=== PATIENT | female | born 1970 | race Caucasian/White ===

== ENCOUNTER 2019-03-20 10:11 | Emergency (ER) | payer MEDICAID ==
[~2019-03-20] VITALS: Ht 167.6 cm; Wt 68.2 kg
[~2019-03-20 10:11] MED LIST: CLE150C PO; DOCU-20 PO; LORA1TAB PO; OXYB5TAB16 PO; PHEN100C12 PO; RANI150C4 PO; THI100T PO
[2019-03-20 11:10] LABS: BASOPHILS # (AUTO) 0.1 X10'3 (0-0.2); BASOPHILS % (AUTO) 0.6 % (0-1); EOSINOPHILS # (AUTO) 0.1 X10'3 (0-0.9); EOSINOPHILS % (AUTO) 0.7 % (0-6); HEMATOCRIT 41.4 % (35.0-45.0); HEMOGLOBIN 13.4 g/dl (12.0-16.0); LYMPHOCYTES # (AUTO) 2.9 X10'3 (1.1-4.8); LYMPHOCYTES % (AUTO) 31.2 % (21-51); MEAN CORPUSCULAR HEMOGLOBIN 29.6 PG (27.0-31.0); MEAN CORPUSCULAR HGB CONC 32.3 g/dL (33.0-36.5); MEAN CORPUSCULAR VOLUME 91.9 FL (78-98); MONOCYTES # (AUTO) 0.8 X10'3 (0-0.9); MONOCYTES % (AUTO) 8.3 % (2-12); NEUTROPHILS # (AUTO) 5.5 X10'3 (1.8-7.7); NEUTROPHILS % (AUTO) 59.2 % (42-75); PLATELET COUNT 259 X10'3 (140-440); RED BLOOD COUNT 4.51 X10'6 (4.20-5.60); RED CELL DISTRIBUTION WIDTH 16.4 % (11.5-14.5); WHITE BLOOD COUNT 9.3 X10'3 (4.5-11.0)
[2019-03-20 11:23] LABS: ALANINE AMINOTRANSFERASE 79 U/L (12-78); ALBUMIN 3.6 G/DL (3.4-5.0); ALBUMIN/GLOBULIN RATIO 0.8 (1.1-1.5); ALKALINE PHOSPHATASE 86 IU/L (46-116); ANION GAP 8 (8-16); ASPARTATE AMINO TRANSFERASE 84 U/L (10-37); BILIRUBIN,TOTAL 0.2 MG/DL (0.1-1.0); BLOOD UREA NITROGEN 10 MG/DL (7-18); BUN/CREATININE RATIO 12.2 (6.6-38.0); CALCIUM 9.3 MG/DL (8.5-10.1); CHLORIDE 107 MMOL/L (99-107); CREATININE 0.82 MG/DL (0.40-0.90); GLUCOSE 98 MG/DL (70-104); POTASSIUM 3.6 MMOL/L (3.5-5.1); SODIUM 144 MMOL/L (135-145); TOTAL CARBON DIOXIDE 28.6 MMOL/L (24-32); TOTAL PROTEIN 8.1 G/DL (6.4-8.2); eGFR 75 ML/MIN
[2019-03-20 11:25] LABS: LIPASE 325 U/L (73-393)
[2019-03-20 11:26] LABS: ETHANOL 0.381 GM/DL (0.0-0.010)
[2019-03-20] MEDS ORDERED: normal saline 1000ML IV soln IVB ONE ×2 (11:40→13:20)
[2019-03-20] MEDS ORDERED: thiamine 100mg tablet PO ONE (11:40)
[2019-03-20] MEDS ORDERED: chlordiazePOXIDE 25mg capsule PO ONE (14:00)
--- NOTE | 2019-03-20 14:10 | NUR ---
ASSISTING WITH PATIENT CARE, PRIMARY RN SYLVIA. PATIENT STATES THAT SHE HAS NOT BEEN DRINKING HEAVILY"IN THE LAST WEEK, JUST TO MAINTAIN" DESPITE A KASIA OVER 4 TIMES THE LEGAL LIMIT. PATIENT STATED THAT "THIS TIME IM DONE DRINKNG". PATIENT WAS OFFERED TO GO TO [facility] AND PATIENT STATED "IM NOT FUCKING GOING BACK THERE" PATIENT REFUSED OTHER OUTPATIENT ETOH TREATMENT. PATIENT CALLED FOR A RIDE.
[2019-03-20 14:27] VITALS: BP 134/91
== END 2019-03-20 14:30 | disposition home or self-care (01) ==
LOC: ER 10:12
DX: F10.129 Alcohol abuse with intoxication, unspecified (principal); R56.9 Unspecified convulsions; F15.90 Other stimulant use, unspecified, uncomplicated; Z98.890 Other specified postprocedural states; Z88.5 Allergy status to narcotic agent; Z88.8 Allergy status to other drugs, medicaments and biological substances; Z79.899 Other long term (current) drug therapy; Y90.0 Blood alcohol level of less than 20 mg/100 ml
CPT/HCPCS: 36415; 80053; 80320; 83690; 85025; 93005; 99284; J7030

== ENCOUNTER 2019-08-06 13:47 | Inpatient (IN) | payer MEDICAID ==
[~2019-08-06] VITALS: Ht 167.6 cm; Wt 63.6 kg
--- NOTE | 2019-08-06 15:30 | NUR ---
NOTIFIED BY PT DAUGHTER OF STATUS CHANGE. PER DAUGHTER PT HAS DECREASING LOC AND WAS SENT HER FOR LOW B/P. PTS VS RE CHEKED. BP 90/61 AND 82/56 HR 115. SEPSIS PROTOCOL ORDERED AND CN NOTIFIED.
[2019-08-06 16:02] LABS: BASOPHILS # (AUTO) 0.1 X10'3 (0-0.2); MEAN PLATELET VOLUME 7.6 FL (7.4-10.4); NEUTROPHILS # (AUTO) 15.3 X10'3 (1.8-7.7); RED BLOOD COUNT 3.93 X10'6 (4.20-5.60)
[2019-08-06 16:04] LABS: BASOPHILS % (AUTO) 0.6 % (0-1); EOSINOPHILS % (AUTO) 0.1 % (0-6); HEMOGLOBIN 12.2 g/dl (12.0-16.0); LYMPHOCYTES # (AUTO) 1.4 X10'3 (1.1-4.8); MEAN CORPUSCULAR HGB CONC 33.9 g/dL (33.0-36.5); MEAN CORPUSCULAR VOLUME 91.6 FL (78-98); MONOCYTES % (AUTO) 5.4 % (2-12); NEUTROPHILS % (AUTO) 85.9 % (42-75); PLATELET COUNT 293 X10'3 (140-440); RED CELL DISTRIBUTION WIDTH 14.3 % (11.5-14.5); WHITE BLOOD COUNT 17.9 X10'3 (4.5-11.0)
[2019-08-06 16:13] LABS: ALANINE AMINOTRANSFERASE 29 U/L (12-78); ALBUMIN 3.1 G/DL (3.4-5.0); ALBUMIN/GLOBULIN RATIO 0.7 (1.1-1.5); ALKALINE PHOSPHATASE 91 IU/L (46-116); ANION GAP 12 (8-16); ASPARTATE AMINO TRANSFERASE 24 U/L (10-37); BILIRUBIN,TOTAL 0.3 MG/DL (0.1-1.0); BLOOD UREA NITROGEN 20 MG/DL (7-18); BUN/CREATININE RATIO 17.7 (6.6-38.0); CALCIUM 8.7 MG/DL (8.5-10.1); CHLORIDE 100 MMOL/L (99-107); CREATININE 1.13 MG/DL (0.40-0.90); GLUCOSE 104 MG/DL (70-104); POTASSIUM 3.6 MMOL/L (3.5-5.1); SODIUM 133 MMOL/L (135-145); TOTAL PROTEIN 7.4 G/DL (6.4-8.2); eGFR 52 ML/MIN
[2019-08-06] MEDS ORDERED: normal saline 1000ML IV soln IV ONE (16:15)
[2019-08-06] MEDS ORDERED: vancomycin/NS 1 GM ADD-VANTAGE 250 ML IV ONE (16:15)
[2019-08-06 16:40] LABS: PARTIAL THROMBOPLASTIN TIME 31 SECONDS (22-32)
[2019-08-06] MEDS ORDERED: piperacillin/tazo 3.375gm/50ml 50 ML IV ONE (16:40)
[2019-08-06 17:16] LABS: CLARITY,URINE SLIGHTLY CLOUDY (Clear); COLOR,URINE YELLOW (Yellow); GLUCOSE, URINE NEGATIVE (Neg); KETONES,URINE NEGATIVE (Neg); LEUKOCYTE ESTERASE ,URINE MODERATE (Neg); NITRITES, URINE NEGATIVE (Neg); OCCULT BLOOD,URINE NEGATIVE (Neg); PROTEIN,URINE NEGATIVE (Neg); UROBILINOGEN,URINE 0.2 E.U/dL (0.2-1.0)
[2019-08-06 17:17] LABS: UA COLLECTION TYPE CLN CATCH MIDSTREAM
[2019-08-06 17:22] LABS: MUCUS STRANDS FEW /LPF (Neg); SQUAMOUS EPITHELIAL CELL,UR MODERATE /LPF (FEW)
[2019-08-06 17:23] LABS: BACTERIA,URINE FEW /HPF (Neg); RBC,URINE 0-2 /HPF (0-2)
[2019-08-06 17:24] LABS: TRANSITIONAL EPI CELLS,URINE FEW /HPF; WBC,URINE 0-4 /HPF (0-4)
[2019-08-06] MEDS ORDERED: magnesium hydroxide 30ml (MOM) UD suspension PO PRN (17:30)
[2019-08-06] MEDS ORDERED: mag hydrox/Alum hydrox/simeth 30ml oral suspension PO PRN (17:30)
[2019-08-06] MEDS ORDERED: morphine 2 MG/ML inj. syringe IV PRN ×2 (17:30)
[2019-08-06] MEDS ORDERED: ondansetron/PF 4mg/2ml inj IV PRN (17:30)
[2019-08-06] MEDS ORDERED: RANI-388 PO (17:34)
[2019-08-06] MEDS ORDERED: LISI-600 PO (17:37)
[2019-08-06] MEDS ORDERED: PROM25TA14 PO (17:37)
[2019-08-06] MEDS ORDERED: IBUP-1986 PO (17:37)
[2019-08-06] MEDS ORDERED: LORA-268 PO (17:37)
[2019-08-06] MEDS ORDERED: ibuprofen tablet 400 MG TABLET PO PRN (18:10)
[2019-08-06] MEDS ORDERED: LORazepam 0.5 MG tablet PO PRN (18:10)
[2019-08-06] MEDS ORDERED: famotidine 20mg tablet PO SCH (18:20)
--- NOTE | 2019-08-06 18:45 | NUR ---
t with ipa 4014b. pt given jello and juice and dinner tray ordered. she reprots she is hungry and has only eaten cips today. pt is polite and cooperative and with stable vs. pain to foot is 5 out of 10 and hot, but reprots she is ok at the moment , no need for further pain meds. currently lying on the gurney on her back and watching no her phone.
[2019-08-06 18:47] LABS: PLATELET ESTIMATE NORMAL; TOTAL CELLS COUNTED 100; TOXIC VACUOLATION 1+
[2019-08-06] MEDS: ceFAZolin 1GM/D5W- ADD-VANTAGE 50 ML IV SCH (19:25)
[2019-08-06] MEDS: dextrose 5%-1/2 normal saline 1,000 ML IV SCH (19:27)
[2019-08-06 19:30] VITALS: BP 110/75
[2019-08-06] MEDS: oxybutynin 5mg tablet PO SCH (21:23)
[2019-08-06 22:00] VITALS: BP 98/65
[2019-08-06] MEDS ORDERED: docusate sod 250mg capsule PO SCH (22:00)
[2019-08-06] MEDS: docusate sod 250mg capsule PO SCH (22:40)
[2019-08-07] MEDS: ceFAZolin 1GM/D5W- ADD-VANTAGE 50 ML IV SCH ×4 (00:37→23:40)
--- NOTE | 2019-08-07 00:54 | NUR ---
noted pt has reddness up her right leg from ankle to behind right knee. solid at ankle, then blotchy up dawson and wraps around posterior knee. hot and painful. pt refused morphine "that gives me such a bad headache. just ibuprofen please"
[2019-08-07] MEDS: dextrose 5%-1/2 normal saline 1,000 ML IV SCH ×3 (03:29→23:39)
[2019-08-07 06:00] VITALS: BP 90/61
--- NOTE | 2019-08-07 06:13 | NUR ---
reported to days. noted pt resting w/o distress
[2019-08-07 06:20] LABS: BASOPHILS % (AUTO) 0.4 % (0-1); EOSINOPHILS # (AUTO) 0.1 X10'3 (0-0.9); EOSINOPHILS % (AUTO) 0.7 % (0-6); LYMPHOCYTES # (AUTO) 1.4 X10'3 (1.1-4.8); LYMPHOCYTES % (AUTO) 12.1 % (21-51); MEAN CORPUSCULAR HEMOGLOBIN 31.1 PG (27.0-31.0); MEAN CORPUSCULAR HGB CONC 33.2 g/dL (33.0-36.5); MEAN CORPUSCULAR VOLUME 93.6 FL (78-98); MEAN PLATELET VOLUME 7.8 FL (7.4-10.4); MONOCYTES # (AUTO) 1.3 X10'3 (0-0.9); MONOCYTES % (AUTO) 11.4 % (2-12); NEUTROPHILS # (AUTO) 8.8 X10'3 (1.8-7.7); NEUTROPHILS % (AUTO) 75.4 % (42-75); PLATELET COUNT 247 X10'3 (140-440); RED BLOOD COUNT 3.85 X10'6 (4.20-5.60); RED CELL DISTRIBUTION WIDTH 14.6 % (11.5-14.5); WHITE BLOOD COUNT 11.6 X10'3 (4.5-11.0)
--- NOTE | 2019-08-07 06:20 | NUR ---
Patient in room ORTHO 4014. I have received report from Dannie GOMEZ and had the opportunity to ask questions and assume patient care.
[2019-08-07 06:29] LABS: ALBUMIN 2.5 G/DL (3.4-5.0); ANION GAP 10 (8-16); BLOOD UREA NITROGEN 11 MG/DL (7-18); BUN/CREATININE RATIO 10.9 (6.6-38.0); CALCIUM 8.3 MG/DL (8.5-10.1); CHLORIDE 107 MMOL/L (99-107); CREATININE 1.01 MG/DL (0.40-0.90); GLUCOSE 125 MG/DL (70-104); POTASSIUM 3.8 MMOL/L (3.5-5.1); SODIUM 139 MMOL/L (135-145); TOTAL CARBON DIOXIDE 22.4 MMOL/L (24-32); eGFR 59 ML/MIN
[2019-08-07] MEDS: enoxaparin 40mg/0.4ml syringe SUBCUT SCH (07:37)
[2019-08-07] MEDS: famotidine 10mg tablet PO SCH (07:37)
[2019-08-07] MEDS: oxybutynin 5mg tablet PO SCH ×2 (07:38→19:47)
[2019-08-07] MEDS ORDERED: HYDROcodone/acetaminophen 5mg/325mg tablet PO PRN (09:05)
[2019-08-07 10:00] VITALS: BP 99/65
[2019-08-07] MEDS: HYDROcodone/acetaminophen 10/325mg tab PO PRN ×3 (10:12→23:39)
[2019-08-07] MEDS: docusate sod 250mg capsule PO SCH ×2 (10:12→19:47)
[2019-08-07 18:00] VITALS: BP 98/62
--- NOTE | 2019-08-07 18:23 | NUR ---
Problems reprioritized. Patient report given, questions answered & plan of care reviewed with Jie Short RN.
[2019-08-07] MEDS: lactobacillus rhamnosus 10,000 MMU CELLS/CAPSULE PO SCH (19:47)
--- NOTE | 2019-08-07 21:30 | NUR ---
Gave report to Diann, as she will be taking over care of patient.
[2019-08-07 22:00] VITALS: BP 109/72
--- NOTE | 2019-08-07 22:16 | NUR ---
Patient in room ORTHO 4014. I have received report from Jie GOMEZ and had the opportunity to ask questions and assume patient care.
--- NOTE | 2019-08-08 01:30 | NUR ---
I have reviewed and agree with all interventions, assessments performed and documented by Jie GOMEZ .
[2019-08-08] MEDS: HYDROcodone/acetaminophen 10/325mg tab PO PRN ×2 (05:08→09:47)
[2019-08-08 06:00] VITALS: BP 112/77
--- NOTE | 2019-08-08 06:35 | NUR ---
Problems reprioritized. Patient report given, questions answered & plan of care reviewed with Mehreen GOMEZ.
[2019-08-08 07:04] LABS: BASOPHILS # (AUTO) 0.1 X10'3 (0-0.2); EOSINOPHILS # (AUTO) 0.4 X10'3 (0-0.9); HEMOGLOBIN 12.2 g/dl (12.0-16.0); LYMPHOCYTES # (AUTO) 2.1 X10'3 (1.1-4.8); MEAN CORPUSCULAR HGB CONC 34.1 g/dL (33.0-36.5); RED BLOOD COUNT 3.91 X10'6 (4.20-5.60)
[2019-08-08 07:07] LABS: BASOPHILS % (AUTO) 0.9 % (0-1); EOSINOPHILS % (AUTO) 3.9 % (0-6); HEMATOCRIT 35.8 % (35.0-45.0); LYMPHOCYTES % (AUTO) 21.1 % (21-51); MEAN CORPUSCULAR HEMOGLOBIN 31.2 PG (27.0-31.0); MEAN CORPUSCULAR VOLUME 91.5 FL (78-98); MEAN PLATELET VOLUME 8.1 FL (7.4-10.4); MONOCYTES # (AUTO) 1.2 X10'3 (0-0.9); MONOCYTES % (AUTO) 12.5 % (2-12); NEUTROPHILS # (AUTO) 6.1 X10'3 (1.8-7.7); NEUTROPHILS % (AUTO) 61.6 % (42-75); PLATELET COUNT 232 X10'3 (140-440); RED CELL DISTRIBUTION WIDTH 14.5 % (11.5-14.5); WHITE BLOOD COUNT 9.9 X10'3 (4.5-11.0)
[2019-08-08 07:17] LABS: ALBUMIN 2.5 G/DL (3.4-5.0); ANION GAP 5 (8-16); BLOOD UREA NITROGEN 8 MG/DL (7-18); BUN/CREATININE RATIO 9.3 (6.6-38.0); CALCIUM 8.7 MG/DL (8.5-10.1); CHLORIDE 104 MMOL/L (99-107); CREATININE 0.86 MG/DL (0.40-0.90); GLUCOSE 110 MG/DL (70-104); POTASSIUM 3.8 MMOL/L (3.5-5.1); SODIUM 137 MMOL/L (135-145); TOTAL CARBON DIOXIDE 27.8 MMOL/L (24-32); eGFR 71 ML/MIN
[2019-08-08 07:28] LABS: PLATELET ESTIMATE NORMAL; TOTAL CELLS COUNTED 100
[2019-08-08] MEDS: famotidine 10mg tablet PO SCH (08:00)
[2019-08-08] MEDS ORDERED: diphenhydrAMINE 50 mg/ml inj IV PRN (09:00)
[2019-08-08] MEDS ORDERED: clindamycin 150mg capsule PO ONE (09:00)
[2019-08-08] MEDS ORDERED: CLIN-5 PO (09:15)
[2019-08-08] MEDS ORDERED: HYDR-4383 PO (09:15)
[2019-08-08] MEDS: lactobacillus rhamnosus 10,000 MMU CELLS/CAPSULE PO SCH (09:47)
[2019-08-08] MEDS: docusate sod 250mg capsule PO SCH (09:47)
[2019-08-08] MEDS: oxybutynin 5mg tablet PO SCH (09:47)
[2019-08-08] MEDS: enoxaparin 40mg/0.4ml syringe SUBCUT SCH (09:48)
[2019-08-08 10:31] VITALS: BP 92/56
== END 2019-08-08 12:15 | disposition home or self-care (01) | DRG 720 ==
LOC: ER 13:48 → ED HOLD 17:32 → ORTHO 4S 19:06
PROVIDERS: ADMIT Internal Medicine; ATTEND Internal Medicine
DX: A41.9 Sepsis, unspecified organism (principal); E87.2 Acidosis; N17.9 Acute kidney failure, unspecified; F17.210 Nicotine dependence, cigarettes, uncomplicated; F41.9 Anxiety disorder, unspecified; L03.115 Cellulitis of right lower limb; K21.9 Gastro-esophageal reflux disease without esophagitis; I10 Essential (primary) hypertension; Z88.5 Allergy status to narcotic agent; Z88.8 Allergy status to other drugs, medicaments and biological substances; Z79.899 Other long term (current) drug therapy; Z83.3 Family history of diabetes mellitus; Z90.81 Acquired absence of spleen; Z82.49 Family history of ischemic heart disease and other diseases of the circulatory system
CPT/HCPCS: 36415; 71045; 80048; 80053; 81001; 83605; 84145; 85025; 85610; 85730; 87040; 87081; 87088; 93005; 93971; 96365; 99285; G0378; J0690; J1200; J1650; J2270; J2405; J2543; J3370

== ENCOUNTER 2019-09-11 16:39 | Emergency (ER) | payer MEDICAID ==
[~2019-09-11] VITALS: Ht 167.6 cm; Wt 65.2 kg
[~2019-09-11 16:39] MED LIST changes: -CLE150C PO; +CLIN-5 PO; -DOCU-20 PO; +HYDR-4383 PO; +IBUP-1986 PO; +LISI-600 PO; +LORA-268 PO; -LORA1TAB PO; -PHEN100C12 PO; +PROM25TA14 PO; +RANI-388 PO; -RANI150C4 PO; -THI100T PO
[2019-09-11 16:45] VITALS: BP 143/94
[2019-09-11] MEDS ORDERED: SULF1TAB49 PO (17:19)
== END 2019-09-11 17:37 | disposition home or self-care (01) ==
LOC: ER 16:41
DX: L02.818 Cutaneous abscess of other sites (principal); L08.9 Local infection of the skin and subcutaneous tissue, unspecified; I10 Essential (primary) hypertension; F10.10 Alcohol abuse, uncomplicated; F12.90 Cannabis use, unspecified, uncomplicated; F15.90 Other stimulant use, unspecified, uncomplicated; Z86.14 Personal history of Methicillin resistant Staphylococcus aureus infection; Z98.890 Other specified postprocedural states; Z88.5 Allergy status to narcotic agent; Z79.899 Other long term (current) drug therapy; Y90.9 Presence of alcohol in blood, level not specified
CPT/HCPCS: 99283

== ENCOUNTER 2020-02-09 14:26 | Emergency (ER) | payer MEDICAID ==
[~2020-02-09] VITALS: Ht 167.6 cm; Wt 70.0 kg
[2020-02-09] MEDS ORDERED: LIDOcaine 5% patch TP ONE (16:35)
[2020-02-09] MEDS ORDERED: cyclobenzaprine 10mg tablet PO ONE (16:35)
[2020-02-09] MEDS ORDERED: HYDROcodone/acetaminophen 5mg/325mg tablet PO ONE (16:35)
[2020-02-09] MEDS ORDERED: ketorolac trometh. 30mg/ml inj. IM ONE (16:35)
[2020-02-09 17:49] VITALS: BP 152/104
== END 2020-02-09 17:56 | disposition home or self-care (01) ==
LOC: ER 14:26
DX: M54.16 Radiculopathy, lumbar region (principal); M54.2 Cervicalgia; I10 Essential (primary) hypertension; F12.90 Cannabis use, unspecified, uncomplicated; F15.90 Other stimulant use, unspecified, uncomplicated; Z86.14 Personal history of Methicillin resistant Staphylococcus aureus infection; Z98.890 Other specified postprocedural states; Z88.5 Allergy status to narcotic agent; Z79.2 Long term (current) use of antibiotics; Z79.899 Other long term (current) drug therapy
CPT/HCPCS: 96372; 99284; J1885

== ENCOUNTER 2021-01-22 14:56 | Emergency (ER) | payer MEDICAID ==
[~2021-01-22] VITALS: Ht 167.6 cm; Wt 62.9 kg
[~2021-01-22 14:56] MED LIST changes: -CLIN-5 PO; +CLIN-91 PO; -LISI-600 PO; +LISI20TA28 PO
[2021-01-22] MEDS ORDERED: ketorolac tromethamine 15mg/ml inj. IM ONE (16:30)
[2021-01-22 17:21] LABS: BASOPHILS % (AUTO) 0.3 % (0-1); EOSINOPHILS # (AUTO) 0.1 X10'3 (0-0.9); EOSINOPHILS % (AUTO) 0.8 % (0-6); HEMATOCRIT 36.6 % (35.0-45.0); LYMPHOCYTES # (AUTO) 1.2 X10'3 (1.1-4.8); LYMPHOCYTES % (AUTO) 9.5 % (21-51); MEAN CORPUSCULAR HEMOGLOBIN 28.3 PG (27.0-31.0); MEAN CORPUSCULAR HGB CONC 32.8 g/dL (33.0-36.5); MEAN CORPUSCULAR VOLUME 86.3 FL (78-98); MEAN PLATELET VOLUME 7.3 FL (7.4-10.4); MONOCYTES # (AUTO) 1.1 X10'3 (0-0.9); MONOCYTES % (AUTO) 9.5 % (2-12); NEUTROPHILS # (AUTO) 9.7 X10'3 (1.8-7.7); NEUTROPHILS % (AUTO) 79.9 % (42-75); PLATELET COUNT 352 X10'3 (140-440); RED BLOOD COUNT 4.25 X10'6 (4.20-5.60); RED CELL DISTRIBUTION WIDTH 16.2 % (11.5-14.5); WHITE BLOOD COUNT 12.1 X10'3 (4.5-11.0)
[2021-01-22 17:30] LABS: PARTIAL THROMBOPLASTIN TIME 24 SECONDS (22-32)
[2021-01-22 17:33] LABS: ALANINE AMINOTRANSFERASE 53 U/L (12-78); ALBUMIN 3.5 G/DL (3.4-5.0); ALBUMIN/GLOBULIN RATIO 0.9 (1.1-1.5); ALKALINE PHOSPHATASE 110 IU/L (46-116); ANION GAP 12 (8-16); ASPARTATE AMINO TRANSFERASE 45 U/L (10-37); BILIRUBIN,TOTAL 0.2 MG/DL (0.1-1.0); BLOOD UREA NITROGEN 20 MG/DL (7-18); BUN/CREATININE RATIO 18.2 (6.6-38.0); C-REACTIVE PROTEIN 0.64 MG/DL (0.0-0.5); CALCIUM 8.9 MG/DL (8.5-10.1); CHLORIDE 103 MMOL/L (99-107); GLUCOSE 99 MG/DL (70-104); SODIUM 138 MMOL/L (135-145); TOTAL CARBON DIOXIDE 22.7 MMOL/L (24-32); TOTAL PROTEIN 7.6 G/DL (6.4-8.2); eGFR 53 ML/MIN
[2021-01-22 17:35] LABS: POTASSIUM 2.7 MMOL/L (3.5-5.1)
[2021-01-22] MEDS ORDERED: potassium Cl 10 mEq/100mL bag IV ONE (17:50)
[2021-01-22] MEDS ORDERED: potassium Cl 10 mEq/100mL bag IV SCH (18:15)
--- NOTE | 2021-01-22 18:24 | NUR ---
pt placed on electronic device monitor. ecg completed by tech
[2021-01-22 20:06] VITALS: BP 121/71
[2021-01-22] MEDS ORDERED: BETA15CR4 TOP (20:09)
[2021-01-22] MEDS ORDERED: PRED20TA PO (20:09)
[2021-01-22] MEDS ORDERED: SULF1TAB45 PO (20:11)
== END 2021-01-22 20:17 | disposition home or self-care (01) ==
LOC: ER 14:56
DX: E87.6 Hypokalemia (principal); L53.9 Erythematous condition, unspecified; I10 Essential (primary) hypertension; F17.200 Nicotine dependence, unspecified, uncomplicated; F12.90 Cannabis use, unspecified, uncomplicated; F15.90 Other stimulant use, unspecified, uncomplicated; Z86.19 Personal history of other infectious and parasitic diseases; Z72.89 Other problems related to lifestyle; Z86.14 Personal history of Methicillin resistant Staphylococcus aureus infection; Z88.8 Allergy status to other drugs, medicaments and biological substances; Z79.2 Long term (current) use of antibiotics; Z79.899 Other long term (current) drug therapy
CPT/HCPCS: 36415; 80053; 83605; 85025; 85610; 85651; 85730; 86140; 87040; 96365; 96366; 96372; 99285; J1885; J3480

== ENCOUNTER 2022-05-26 08:07 | Emergency (ER) | payer MEDICAID ==
[~2022-05-26] VITALS: Ht 165.1 cm; Wt 61.1 kg
[~2022-05-26 08:07] MED LIST changes: +BETA15CR4 TOP
[2022-05-26 10:10] LABS: CLARITY,URINE CLOUDY (Clear); COLOR,URINE YELLOW (Yellow); GLUCOSE, URINE NEGATIVE (Neg); KETONES,URINE NEGATIVE (Neg); LEUKOCYTE ESTERASE ,URINE SMALL (Neg); NITRITES, URINE POSITIVE (Neg); OCCULT BLOOD,URINE NEGATIVE (Neg); PROTEIN,URINE TRACE mg/dl (Neg)
[2022-05-26 10:15] LABS: UA COLLECTION TYPE CLN CATCH MIDSTREAM
[2022-05-26 10:17] LABS: BACTERIA,URINE 3+ /HPF (Neg); HYALINE CASTS 0-3 /LPF (NEGATIVE); MUCUS STRANDS NONE SEEN /LPF (Neg); RBC,URINE 0-2 /HPF (0-2); SQUAMOUS EPITHELIAL CELL,UR MODERATE /LPF (FEW); WBC CLUMPS,URINE FEW /HPF (NEGATIVE)
[2022-05-26 10:47] VITALS: BP 143/106
[2022-05-26] MEDS ORDERED: CEPH250T PO (11:00)
== END 2022-05-26 11:17 | disposition home or self-care (01) ==
LOC: ER 08:08
DX: N39.0 Urinary tract infection, site not specified (principal); M54.50 Low back pain, unspecified; F19.10 Other psychoactive substance abuse, uncomplicated; I10 Essential (primary) hypertension; G89.29 Other chronic pain; F17.200 Nicotine dependence, unspecified, uncomplicated; F12.90 Cannabis use, unspecified, uncomplicated; F15.20 Other stimulant dependence, uncomplicated; Z88.5 Allergy status to narcotic agent; W19.XXXA Unspecified fall, initial encounter; Y93.89 Activity, other specified; Y92.89 Other specified places as the place of occurrence of the external cause; Y99.8 Other external cause status
CPT/HCPCS: 81001; 99284

== ENCOUNTER 2023-03-13 11:53 | Emergency (ER) | payer MEDICAID ==
[~2023-03-13] VITALS: Ht 167.6 cm; Wt 58.0 kg
[2023-03-13 12:16] VITALS: BP 124/69
--- NOTE | 2023-03-13 15:02 | NUR ---
CALLED PT'S NAME FROM THE LOBBY TO GET A SET OF VITALS AND THE PT WAS NOT IN LOBBY
== END 2023-03-13 15:56 | disposition left against medical advice (07) ==
LOC: ER 11:55
DX: H57.12 Ocular pain, left eye (principal); Z53.21 Procedure and treatment not carried out due to patient leaving prior to being seen by health care provider
CPT/HCPCS: 99281

== ENCOUNTER 2025-03-04 18:33 | Emergency (ER) | payer MEDICAID ==
[~2025-03-04] VITALS: Ht 167.6 cm; Wt 65.7 kg
[~2025-03-04 18:33] MED LIST changes: +CLIN-232 PO; -CLIN-91 PO; -OXYB5TAB16 PO; +OXYB5TAB21 PO
[2025-03-04 18:44] VITALS: BP 117/77; PULSE 77; RESP 16; O2SAT 99
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
[2025-03-04 19:58] LABS: URINE AMPHETAMINE SCREEN POSITIVE (Neg); URINE BARBITUATE SCREEN NEGATIVE (Neg); URINE BENZODIAZEPINES SCREEN NEGATIVE (Neg); URINE CANNABINOID SCREEN POSITIVE (Neg); URINE COCAINE SCREEN NEGATIVE (Neg); URINE METHADONE SCREEN NEGATIVE (Neg); URINE OPIATE SCREEN NEGATIVE (Neg); URINE PHENCYCLIDINE SCREEN NEGATIVE (Neg)
[2025-03-04 20:04] VITALS: TEMP 97.8
== END 2025-03-04 20:06 | disposition home or self-care (01) ==
LOC: ER 18:34
DX: R42 Dizziness and giddiness (principal); T43.625A Adverse effect of amphetamines, initial encounter; I10 Essential (primary) hypertension; Z88.5 Allergy status to narcotic agent; Z79.899 Other long term (current) drug therapy; Y92.89 Other specified places as the place of occurrence of the external cause
CPT/HCPCS: 80305; 99283

== ENCOUNTER 2025-05-25 09:39 | Inpatient (IN) | payer MEDICAID ==
[~2025-05-25] VITALS: Ht 167.6 cm; Wt 65.0 kg
--- NOTE | 2025-05-25 11:22 | Physician Documentation ---
History of Present Illness ~ Chief Complaint: Multiple Medical Complaints Stated Complaint: R LEG INFECTION Time Seen by MD: 10:47 Primary Medical Doctor: [facility] Patient is seen today with complaints of swelling of her right lower extremity that started a couple of days ago. Patient states she has had infection in the right lower extremity that healed up over a year ago. Patient denies any fevers or chills but states her right lower extremity is extremely painful and she is very concerned about it progressing to full-blown infection and sepsis like it did a few years ago in the same leg. Tetanus witin 5 years: Yes Medication Reconciliation Allergies: Coded Allergies: codeine (Verified Allergy, Unknown, 05/25/25) Scheduled Metoprolol Tartrate (Lopressor tablet), 1 TAB PO Q12H, (Reported) Scheduled PRN Ibuprofen (Ibuprofen), 1 TAB PO TID PRN for pain, (Reported) Discontinued Medications Betamethasone Dipropionate (Betamethasone Dipropionate), 1 APPLIC TOP Q12H Discontinued Reason: patient no longer taking Clindamycin HCl (Clindamycin HCl), 300 MG PO Q6H Discontinued Reason: patient no longer taking Hydrocodone/Acetaminophen ([place] 5-325 Tablet), 1 TAB PO Q6H PRN for moderate pain Discontinued Reason: patient no longer taking Lisinopril (Lisinopril), 1 TAB PO DAILY, (Reported) Discontinued Reason: patient no longer taking Lorazepam (Ativan), 1 TAB PO BID PRN for for anxiety/agitation, (Reported) Discontinued Reason: patient no longer taking Oxybutynin Chloride (Oxybutynin Chloride), 2 TABLET PO BID, (Reported) Discontinued Reason: patient no longer taking Promethazine HCl (Promethazine HCl), 1 TAB PO BID PRN for nausea/vomiting, (Reported) Discontinued Reason: patient no longer taking Ranitidine Hcl (Heartburn Relief 150), 150 MG PO DAILY, (Reported) Discontinued Reason: patient no longer taking Past Medical History Past Medical History: Hypertension, *GI/HEPATOBILIARY*, Hepatitis B, Hepatitis C, Chronic Pain, Extremity Fracture, Cellulitis, MRSA Abscess Past Surgical History: abdominal surgery, orthopedic surgeries Alcohol Use: Alcoholic Drug Use: marijuana, methamphetamine Lives In: Home Review of Systems Constitutional: Denies: chills, fever, weakness Eyes: Denies: pain, blurred vision ENT: Denies: ear pain, nose pain, throat pain, mouth pain Respiratory: Denies: cough, shortness of breath Cardiovascular: Denies: chest pain, palpitations Gastrointestinal: Denies: abdominal pain, nausea, vomiting Genitourinary: Denies: burning, dysuria Female Genitalia: Denies: vaginal discharge, pelvic pain Neurological: Denies: headache, dizziness Musculoskeletal: Denies: pain, swelling Integumentary: Denies: rash, lesions Allergic/Immunologic: Denies: hives, itching Hematologic/Lymphatic: Denies: no symptoms reported Psychiatric: Denies: depression, anxiety Physical Exam Vital Signs: Temperature: 97.8, Source: Oral, Heart Rate: 103, Respiratory Rate: 17, BP: 101/72, Pulse Oximetry: 98, Weight: 65.000 Physical Exam General: Awake and Alert, no acute distress. HEENT: Conjunctiva pink, Sclera clear, Mucus Membranes moist. Neck: Supple without masses and tenderness. Resp: Unlabored. Lungs clear to auscultation bilaterally. Heart: Regular Rate and rhythm, normal S1 and S2 without murmur, rub or gallop. Extremities: No cyanosis, patient does have significant edema of the right lower extremity only. Left lower extremity is completely unremarkable. Skin: Patient on exam has erythema and nonblanching erythematous rash of the right lower extremity. Progress Results/Orders Results/Orders Orders - AUNDREA SEGURA PAC Vl Venous (05/25/25 11:21) Urinalysis, Cult If Indicated (05/25/25 11:21) Chest,Two Views (05/25/25 11:21) Page Hospitalist (05/25/25 16:47) Fill Out Med Reconciliation (05/25/25 16:47) Saline Lock (05/25/25 ) Completed Orders - AUNDREA SEGURA PAC Vl Venous (05/25/25 11:21) Cbc/Diff (05/25/25 11:21) MG (05/25/25 11:21) D-Dimer (05/25/25 11:21) Chest,Two Views (05/25/25 11:21) C-Reactive Protein (05/25/25 11:21) ESR (05/25/25 11:21) Electrocardiogram (05/25/25 11:21) BMP (05/25/25 11:21) Hs Troponin I W Calculations (05/25/25 11:21) Hs Troponin I W Calculations (05/25/25 13:21) Ketorolac Trometh 15mg/Ml Vial (Toradol (05/25/25 16:47) Medications Received in ER Medications (Trade) Dose Ordered Sig/Tanner Route PRN Reason Start Time Stop Time Status Last Admin Dose Admin (Toradol injection) 15 mg ONCE STAT IV 05/25/25 16:47 05/25/25 16:49 DC 05/25/25 17:09 15 MG Vital Signs 05/25/25 05/25/25 05/25/25 05/25/25 09:41 14:34 15:41 17:09 Temp 97.8 Pulse 103 78 87 Resp 17 14 18 B/P (MAP) 101/72 121/80 (94) 115/80 (92) Pulse Ox 98 96 98 O2 Flow Rate 0 Laboratory Tests Test 05/25/25 11:37 05/25/25 13:20 White Blood Count 10.7 Red Blood Count 4.70 Hemoglobin 15.3 Hematocrit 44.8 Mean Corpuscular Volume 95.2 Mean Corpuscular Hemoglobin 32.6 H Mean Corpuscular Hemoglobin Concent 34.2 Red Cell Distribution Width 14.0 Platelet Count 212 Mean Platelet Volume 8.5 Neutrophils (%) (Auto) 84.0 H Lymphocytes (%) (Auto) 8.4 L Monocytes (%) (Auto) 6.2 Eosinophils (%) (Auto) 1.0 Basophils (%) (Auto) 0.4 Neutrophils # (Auto) 9.0 H Lymphocytes # (Auto) 0.9 L Monocytes # (Auto) 0.7 Eosinophils # (Auto) 0.1 Basophils # (Auto) 0.0 CBC Comment Erythrocyte Sedimentation Rate 60 H D-Dimer 3.98 H D-Dimer Comment Sodium Level 135 Potassium Level 3.0 *L Chloride Level 101 Carbon Dioxide Level 19.9 L Anion Gap 14 Blood Urea Nitrogen 23 H Creatinine 1.10 H Estimated GFR/1.73 m2 52 BUN/Creatinine Ratio 20.9 H Glucose Level 105 H Calcium Level 9.6 Magnesium Level 2.1 Troponin I High Sensitivity 10 9 C-Reactive Protein 25.94 H Albumin 3.3 L Chemistry Comments Troponin I High Sens Percent Delta 10 Troponin I Hi Sens Absolute Change -1 Medical Decision Making Findings Patient is seen today with complaints of swelling of her right lower extremity that started a couple of days ago. Patient states she has had infection in the right lower extremity that healed up over a year ago. Patient denies any fevers or chills but states her right lower extremity is extremely painful and she is very concerned about it progressing to full-blown infection and sepsis like it did a few years ago in the same leg. I did consult with the hospitalists for further eval and treatment and patient will be admitted. Patient's labs did show elevated ESR and CRP. Departure Disposition: ADMITTED INPATIENT Admitted to Inpatient Unit: to hospitalist Admission Level of Care: Med/Surg Impression: Primary Impression: Cellulitis Qualified Codes: L03.115 - Cellulitis of right lower limb Condition: Fair Additional Instructions: I did consult with the hospitalists for further eval and treatment and patient will be admitted. Patient's labs did show elevated ESR and CRP. Referrals: NO PRIMARY CARE PROVIDER (PCP) Signature Scribe Signature: No scribe Attestation: No scribe AUNDREA SEGURA PAC May 25, 2025 11:22
--- NOTE | 2025-05-25 11:44 | ELECTROCARDIOGRAPH REPORT ---
[facility] Test Date: 2025-05-25 Test Time: 11:42:22 Pat Name: REZA NIELSEN Department: [facility]-ER Patient ID: [facility]-[id number] Room: [place] [id number] Gender: F Mysql Database Administrator: : 1970 Requested By: AUNDREA SEGURA Order Number: [id number] Reading MD: Dr. Jeremiah Tomas Measurements Intervals [place] Rate: 90 P: 63 UT: 157 QRS: 55 QRSD: 86 T: 36 QT: 354 QTc: 433 Interpretive Statements Sinus rhythm Probable left atrial enlargement Electronically Signed On 05-27-2025 21:44:[address] Jeremiah Tomas Please click the below link to view image of tracing.
[2025-05-25 11:58] LABS: MEAN PLATELET VOLUME 8.5 FL (7.4-10.4); RED CELL DISTRIBUTION WIDTH 14.0 % (11.5-14.5)
--- NOTE | 2025-05-25 12:05 | RADIOLOGY REPORT ---
CHEST RADIOGRAPH Indication: CHEST PAIN Technique: Frontal and lateral view of the chest was obtained Comparison: None FINDINGS: Lines and Tubes: None Lungs: Clear Pleura: No effusion. No pneumothorax. Cardiomediastinal contours: Unremarkable Bones: Unremarkable IMPRESSION: No evidence of acute disease.
[2025-05-25 12:07] LABS: CREATININE 1.10 MG/DL (0.40-0.90); TOTAL CARBON DIOXIDE 19.9 MMOL/L (24-32); eCRCL 56 ML/MIN; eGFR 52 ML/MIN
--- NOTE | 2025-05-25 15:17 | VASCULAR REPORT ---
Right lower extremity venous duplex Clinical History: Comparison: None Findings: Vein Imaging (Right) CFV (R): Compressible, Spontaneous, Respirophasic, Augmentation Reflux: ms SFJ (R): Compressible, Spontaneous, Respirophasic, Augmentation Reflux: ms FEM (R): Compressible, Spontaneous, Respirophasic, Augmentation Reflux: ms POP (R): Compressible, Spontaneous, Respirophasic, Augmentation Reflux: ms DFV (R): Compressible, Spontaneous, Respirophasic, Augmentation Reflux: ms PTV (R): Compressible, Spontaneous, Respirophasic, Augmentation Reflux: ms GSV (R): Compressible, Spontaneous, Respirophasic, Augmentation Reflux: ms Peroneals (R): Compressible, Spontaneous, Respirophasic, Augmentation Reflux: ms Vein Imaging (Left) CFV (L): Spontaneous, Respirophasic, Augmentation Reflux: ms CONCLUSION No sonographic evidence for thrombus detected by image in the deep or superficial venous systems of the right lower extremity. All vessels interrogated were compressible and augment with distal compressions. Spontaneous, respirophasic flow is noted throughout the right lower extremity. The contralateral common femoral vein appears patent and display symmetrical waveforms, suggesting no proximal obstruction to flow. Incidental finding: Prominent lymph nodes seen in the right groin measuring 0.8 cm x 2.8 cm in transverse.
[2025-05-25] MEDS: ketorolac trometh 15mg/ml vial 15 MG/ML ML IV STA (17:09)
[2025-05-25] MEDS ORDERED: ondansetron/PF 4mg/2ml inj IV PRN (17:40)
[2025-05-25] MEDS ORDERED: potassium Cl 40MEQ/1/2NS 520ml 520 ML IV PRN (17:40)
[2025-05-25] MEDS ORDERED: magnesium Cl slow-release 64mg tablet PO PRN (17:40)
[2025-05-25] MEDS ORDERED: magnesium sulf-water 4G/100mL 100 ML IV PRN (17:40)
[2025-05-25] MEDS ORDERED: potassium Cl 20 mEq SR tablet PO PRN (17:40)
[2025-05-25] MEDS ORDERED: magnesium sulf-water 2g/50mL 50 ML IV PRN (17:40)
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
[2025-05-25] MEDS: nicotine 21mg patch - 24 hr TD SCH (17:55)
[2025-05-25] MEDS: cloNIDine 0.1 MG/24 HOUR patch (7 day patch) TD SCH (17:55)
[2025-05-25] MEDS ORDERED: LOP12.5T PO (18:04)
[2025-05-25] MEDS: normal saline 1000ml 1,000 ML IV SCH (18:20)
[2025-05-25] MEDS: normal saline 1000ml 1,000 ML IV ONE (19:02)
[2025-05-25] MEDS: ceFAZolin/D5W- 1GM premix 50 ML IV SCH (19:02)
[2025-05-25] MEDS: thiamine 100mg/ml 2ml inj. IV ONE (19:03)
[2025-05-25] MEDS: morphine 4 MG/ML inj SYRINge IV PRN (19:08)
[2025-05-25] MEDS: K and/or MAG REPLACEMENT MC SCH (20:09)
[2025-05-25 20:20] LABS: LEUKOCYTE ESTERASE ,URINE NEGATIVE (Neg); NITRITES, URINE NEGATIVE (Neg); OCCULT BLOOD,URINE NEGATIVE (Neg); UA COLLECTION TYPE CLN CATCH MIDSTREAM
[2025-05-25 20:35] LABS: URINE AMPHETAMINE SCREEN NEGATIVE (Neg); URINE BARBITUATE SCREEN NEGATIVE (Neg); URINE BENZODIAZEPINES SCREEN NEGATIVE (Neg); URINE CANNABINOID SCREEN POSITIVE (Neg); URINE COCAINE SCREEN NEGATIVE (Neg); URINE METHADONE SCREEN NEGATIVE (Neg); URINE OPIATE SCREEN NEGATIVE (Neg); URINE PHENCYCLIDINE SCREEN NEGATIVE (Neg)
[2025-05-25 20:37] LABS: AMORPHOUS PHOSPHATES 1+; FINE GRANULAR CAST 0-3 /LPF (NEGATIVE); MUCUS STRANDS FEW /LPF (Neg); SQUAMOUS EPITHELIAL CELL,UR FEW /LPF (FEW)
[2025-05-25 21:30] VITALS: BP 137/91; PULSE 89; RESP 18; TEMP 98.1; O2SAT 97
[2025-05-25 22:00] VITALS: BP 137/91; PULSE 89; RESP 18; TEMP 98.1; O2SAT 97
[2025-05-25] MEDS: potassium Cl 20 mEq SR tablet PO PRN (22:25)
[2025-05-25] MEDS: HYDROcodone/acetaminophen 5mg/325mg tablet PO PRN (22:25)
[2025-05-26] VITALS (7 sets, daily range): BP systolic 105–126; BP diastolic 70–86; PULSE 78–85; RESP 12–20; TEMP 97.8–98.3; O2SAT 94–99
[2025-05-26 04:52] LABS: MEAN PLATELET VOLUME 8.4 FL (7.4-10.4); RED CELL DISTRIBUTION WIDTH 13.9 % (11.5-14.5)
[2025-05-26 05:05] LABS: CREATININE 0.93 MG/DL (0.40-0.90); TOTAL CARBON DIOXIDE 24.7 MMOL/L (24-32); eCRCL 66 ML/MIN; eGFR 63 ML/MIN
[2025-05-26 05:57] LABS: EOSINOPHILS % (MANUAL) 5.0 % (0-6); LYMPHOCYTES % (MANUAL) 13.0 % (21-51); MONOCYTES % (MANUAL) 13.0 % (2-12); NEUTROPHILS % (MANUAL) 69.0 % (42-75)
[2025-05-26 05:58] LABS: PLATELET ESTIMATE NORMAL
[2025-05-26] MEDS: enoxaparin 40mg/0.4ml syringe SUBCUT SCH (08:00)
[2025-05-26] MEDS: multivitamins, therapeutics tablet PO SCH (09:11)
[2025-05-26] MEDS: vancomycin/NS 1 GM ADD-VANTAGE 250 ML IV SCH (14:11)
--- NOTE | 2025-05-26 16:14 | PROGRESS NOTE- Residence ---
Progress Note - Resident Providers to CC Resident Creating Document: MAYO BARRIOS RES ~ Antibiotic Timeout Antibiotic Ordered?: Yes Subjective Patient was seen and examined at bedside. Her pain is controlled. She did not report any issues or concerns. She has history of MRSA in the past. Therefore, Ancef was discontinued and patient was started on vancomycin. Objective Vital Signs Date Time Temp Pulse Resp B/P (MAP) Pulse Ox O2 Delivery O2 Flow Rate FiO2 05/26/25 14:29 16 05/26/25 11:44 99 Room Air 0.0 05/26/25 11:00 97.9 82 108/70 (83) General: Awake and Alert, no acute distress. HEENT: Conjunctiva pink, Sclera clear, Mucus Membranes moist. Neck: Supple without masses and tenderness. Resp: Unlabored. Lungs clear to auscultation bilaterally. Heart: Regular Rate and rhythm, normal S1 and S2 without murmur, rub or gallop. Abdomen: Soft and non tender no organomegaly Extremities: Right lower extremity swelling, tenderness, and erythema in the mid cough region. Pulses palpable Skin: Warm and Dry. Result Diagram: 05/26/25 0424 05/26/25 0424 Coagulation Studies Laboratory Tests Test 05/25/25 11:37 D-Dimer 3.98 MG/L FEU (0-0.50) H D-Dimer Comment Advance Care Planning Advanced Care plannin - 30 Minutes Assessment Assessment 1. Right lower extremity erysipelas versus cellulitis Does not meet SIRS/sepsis criteria Exam: We will demarcated erythema, swelling, tenderness, more consistent with erysipelas but cellulitis also possible Doppler ultrasound negative for DVT. CRP and ESR elevated. No leukocytosis Plan: Blood culture ordered , follow Ancef IV started for Streptococcus coverage Pain control; morphine and [place] Monitor for systemic signs/sepsis May 26, 2025: History of MRSA positive. Ancef discontinued, and vancomycin initiated 2. Acute kidney injury, likely prerenal secondary to dehydration, improved Exam; appears dehydrated Creatinine slightly elevated; 1.10 NS 1 L bolus - continue NS 100 mL/hours Monitor BMP May 26, 2025: Renal function responded well to IV hydration. Creatinine is within reference ranges. We will continue to monitor BMP in renal function 3. Upper respiratory symptoms Sore throat, nasal congestions Reports congestions, sore throat. No respiratory distress noted COVID rapid test ordered Supportive care; antipyretics, hydration Monitor for respiratory symptoms or desaturation May 26, 2025: COVID test is negative. Continue supportive care 4. Alcohol use disorder History; 1 L per day previously, now 3-4 beers/day. Patient minimizes withdrawal risk CIWA protocol given ongoing alcohol intake Thiamine, folate, multivitamin supplementation Librium 25 mg p.o. every 6 hours Social service consult requested 5. Tobacco use disorder Smokes six cigarettes per day times 20 years Nicotine patch Smoking cessation counseling provided 6. Breast cancer, left breast Recently diagnosed, pending lumpectomy Diagnosed two months ago, no chemo/radiation yet Outpatient Oncology/surgery follow up No acute management this admission Code status: Full code DVT prophylaxis: Mimi Barrios Internal Medicine Resident, PGY-3 Date of Service: May 26, 2025 Billing Provider: JOSE NICK MD Common Visit Codes: [id number] INP/OBS CARE(HIGH) MAYO BARRIOS, RES May 26, 2025 16:14 JOSE NICK MD May 27, 2025 07:49
[2025-05-27 04:44] LABS: MEAN PLATELET VOLUME 7.9 FL (7.4-10.4); RED CELL DISTRIBUTION WIDTH 13.5 % (11.5-14.5)
[2025-05-27 04:53] LABS: CREATININE 0.65 MG/DL (0.40-0.90); TOTAL CARBON DIOXIDE 24.7 MMOL/L (24-32); eCRCL 95 ML/MIN; eGFR > 90 ML/MIN
[2025-05-27 05:34] LABS: BANDS% (MANUAL) 1.0 % (0-10); EOSINOPHILS % (MANUAL) 2.0 % (0-6); LYMPHOCYTES % (MANUAL) 16.0 % (21-51); MONOCYTES % (MANUAL) 16.0 % (2-12); NEUTROPHILS % (MANUAL) 65.0 % (42-75); PLATELET ESTIMATE NORMAL
[2025-05-27 06:44] VITALS: BP 116/78; PULSE 82; RESP 16; TEMP 97.8; O2SAT 97
[2025-05-27 08:36] VITALS: RESP 16; O2SAT 97
[2025-05-27 10:00] VITALS: BP 103/67; PULSE 73; RESP 16; TEMP 98.1; O2SAT 95
--- NOTE | 2025-05-27 12:21 | PROGRESS NOTE- Residence ---
Progress Note - Resident Providers to CC Resident Creating Document: MAYO BARRIOS RES ~ Antibiotic Timeout Antibiotic Ordered?: Yes Subjective Patient was seen and examined at bedside. Her pain is controlled. She did not report any issues or concerns. On exam, erythema, redness and tenderness improved. Objective Vital Signs Date Time Temp Pulse Resp B/P (MAP) Pulse Ox O2 Delivery O2 Flow Rate FiO2 05/27/25 10:00 98.1 73 16 103/67 (79) 95 Room Air 05/26/25 20:00 0.0 General: Awake and Alert, no acute distress. HEENT: Conjunctiva pink, Sclera clear, Mucus Membranes moist. Neck: Supple without masses and tenderness. Resp: Unlabored. Lungs clear to auscultation bilaterally. Heart: Regular Rate and rhythm, normal S1 and S2 without murmur, rub or gallop. Abdomen: Soft and non tender no organomegaly Extremities: Right lower extremity swelling, tenderness, and erythema in the mid cough region. Pulses palpable Skin: Warm and Dry. Result Diagram: 05/27/2542405/27/25424 Coagulation Studies Laboratory Tests Test 05/25/25 11:37 D-Dimer 3.98 MG/L FEU (0-0.50) H D-Dimer Comment Advance Care Planning Advanced Care plannin - 30 Minutes Assessment Assessment 1. Right lower extremity erysipelas versus cellulitis Does not meet SIRS/sepsis criteria Exam: We will demarcated erythema, swelling, tenderness, more consistent with erysipelas but cellulitis also possible Doppler ultrasound negative for DVT. CRP and ESR elevated. No leukocytosis Plan: Blood culture ordered , follow Ancef IV started for Streptococcus coverage Pain control; morphine and [place] Monitor for systemic signs/sepsis May 26, 2025: History of MRSA positive. Ancef discontinued, and vancomycin initiated May 27, 2025: She is clinically improved. We will continue IV vancomycin Disposition: Potential discharge tomorrow in the morning with no services. 2. Acute kidney injury, likely prerenal secondary to dehydration, resolved Exam; appears dehydrated Creatinine slightly elevated; 1.10 NS 1 L bolus - continue NS 100 mL/hours Monitor BMP May 26, 2025: Renal function responded well to IV hydration. Creatinine is within reference ranges. We will continue to monitor BMP in renal function May 27, 2025: ALICE resolved 3. Upper respiratory symptoms Sore throat, nasal congestions Reports congestions, sore throat. No respiratory distress noted COVID rapid test ordered Supportive care; antipyretics, hydration Monitor for respiratory symptoms or desaturation May 26, 2025: COVID test is negative. Continue supportive care 4. Alcohol use disorder History; 1 L per day previously, now 3-4 beers/day. Patient minimizes withdrawal risk CIWA protocol given ongoing alcohol intake Thiamine, folate, multivitamin supplementation Librium 25 mg p.o. every 6 hours Social service consult requested 5. Tobacco use disorder Smokes six cigarettes per day times 20 years Nicotine patch Smoking cessation counseling provided 6. Breast cancer, left breast Recently diagnosed, pending lumpectomy Diagnosed two months ago, no chemo/radiation yet Outpatient Oncology/surgery follow up No acute management this admission Code status: Full code DVT prophylaxis: Lovenox Disposition:: If clinically remains the same, she will be discharged home with no services. Mayo Barrios Internal Medicine Resident, PGY-3 Date of Service: May 27, 2025 Billing Provider: JOSE NICK MD Common Visit Codes: [id number] INP/OBS CARE(HIGH) MAYO BARRIOS, RES May 27, 2025 12:21 JOSE NICK MD May 28, 2025 06:29
[2025-05-27 18:00] VITALS: BP 156/94; PULSE 74; RESP 16; TEMP 97.4; O2SAT 96
[2025-05-27 20:00] VITALS: RESP 16; O2SAT 96
[2025-05-27 22:00] VITALS: BP 96/64; PULSE 81; RESP 14; TEMP 97.2; O2SAT 96
[2025-05-28] MEDS: VANCOMYCIN LEVEL IV ONE (00:42)
[2025-05-28 04:51] LABS: CREATININE 0.75 MG/DL (0.40-0.90); MEAN PLATELET VOLUME 8.0 FL (7.4-10.4); RED CELL DISTRIBUTION WIDTH 13.7 % (11.5-14.5); TOTAL CARBON DIOXIDE 25.6 MMOL/L (24-32); eCRCL 82 ML/MIN; eGFR 81 ML/MIN
[2025-05-28 06:00] VITALS: BP 106/67; PULSE 77; RESP 20; TEMP 97.4; O2SAT 93
[2025-05-28 07:45] VITALS: RESP 16
[2025-05-28 07:51] LABS: BANDS% (MANUAL) 7.0 % (0-10); EOSINOPHILS % (MANUAL) 3.0 % (0-6); LYMPHOCYTES % (MANUAL) 20.0 % (21-51); MONOCYTES % (MANUAL) 13.0 % (2-12); NEUTROPHILS % (MANUAL) 57.0 % (42-75)
[2025-05-28 07:52] LABS: PLATELET ESTIMATE NORMAL
[2025-05-28 10:00] VITALS: BP 102/67; PULSE 72; RESP 16; TEMP 97.3; O2SAT 94
[2025-05-28] MEDS ORDERED: LACT1CAP26 PO (10:27)
[2025-05-28] MEDS ORDERED: thiamine tablet PO (10:27)
[2025-05-28] MEDS ORDERED: FOLI1TAB27 PO (10:27)
[2025-05-28] MEDS ORDERED: LINE600T14 PO (10:27)
[2025-05-28] MEDS ORDERED: MULT-25 PO (10:27)
[2025-05-28] MEDS: VANCOmycin 1250MG/NS 250ml Bag 250 ML IV SCH (13:06)
--- NOTE | 2025-05-28 15:12 | PROGRESS NOTE- Residence ---
Progress Note - Resident Providers to CC Resident Creating Document: JEREMIAH BARRIOS RES ~ Antibiotic Timeout Antibiotic Ordered?: Yes Subjective Patient was seen and examined at bedside. Her pain is controlled. She did not report any issues or concerns. On exam, erythema, redness and tenderness significantly improved. Objective Vital Signs Date Time Temp Pulse Resp B/P (MAP) Pulse Ox O2 Delivery O2 Flow Rate FiO2 05/28/25 13:01 16 05/28/25 10:00 97.3 72 102/67 (79) 94 Room Air 05/27/25 20:00 0.0 General: Awake and Alert, no acute distress. HEENT: Conjunctiva pink, Sclera clear, Mucus Membranes moist. Neck: Supple without masses and tenderness. Resp: Unlabored. Lungs clear to auscultation bilaterally. Heart: Regular Rate and rhythm, normal S1 and S2 without murmur, rub or gallop. Abdomen: Soft and non tender no organomegaly Extremities: Right lower extremity swelling, tenderness, and erythema in the mid cough region. Pulses palpable Skin: Warm and Dry. Result Diagram: 05/28/25 0424 05/28/25 0424 Coagulation Studies Laboratory Tests Test 05/25/25 11:37 D-Dimer 3.98 MG/L FEU (0-0.50) H D-Dimer Comment Advance Care Planning Advanced Care plannin - 30 Minutes Assessment Assessment 1. Right lower extremity erysipelas versus cellulitis Does not meet SIRS/sepsis criteria Exam: We will demarcated erythema, swelling, tenderness, more consistent with erysipelas but cellulitis also possible Doppler ultrasound negative for DVT. CRP and ESR elevated. No leukocytosis Plan: Blood culture ordered , follow Ancef IV started for Streptococcus coverage Pain control; morphine and [place] Monitor for systemic signs/sepsis May 26, 2025: History of MRSA positive. Ancef discontinued, and vancomycin initiated May 27, 2025: She is clinically improved. We will continue IV vancomycin Disposition: Potential discharge tomorrow in the morning with no services. May 28, 2025: Pain well controlled. Tenderness significantly improved, erythema improved. Patient will be discharged home with no services. 2. Acute kidney injury, likely prerenal secondary to dehydration, resolved Exam; appears dehydrated Creatinine slightly elevated; 1.10 NS 1 L bolus - continue NS 100 mL/hours Monitor BMP May 26, 2025: Renal function responded well to IV hydration. Creatinine is within reference ranges. We will continue to monitor BMP in renal function May 27, 2025: ALICE resolved May 28, 2025: ALICE resolved 3. Upper respiratory symptoms Sore throat, nasal congestions Reports congestions, sore throat. No respiratory distress noted COVID rapid test ordered Supportive care; antipyretics, hydration Monitor for respiratory symptoms or desaturation May 26, 2025: COVID test is negative. Continue supportive care 4. Alcohol use disorder History; 1 L per day previously, now 3-4 beers/day. Patient minimizes withdrawal risk CIWA protocol given ongoing alcohol intake Thiamine, folate, multivitamin supplementation Librium 25 mg p.o. every 6 hours Social service consult requested 5. Tobacco use disorder Smokes six cigarettes per day times 20 years Nicotine patch Smoking cessation counseling provided 6. Breast cancer, left breast Recently diagnosed, pending lumpectomy Diagnosed two months ago, no chemo/radiation yet Outpatient Oncology/surgery follow up No acute management this admission Code status: Full code DVT prophylaxis: Lovenox Disposition:: She will be discharged home tomorrow in a.m. with no services. Jeremiah Barrios Internal Medicine Resident, PGY-3 Date of Service: May 28, 2025 Billing Provider: JOSE NICK MD Common Visit Codes: [id number] INP/OBS CARE(HIGH) JEREMIAH BARRIOS, CHARLENE May 28, 2025 15:12 JOSE NICK MD May 30, 2025 08:52
[2025-05-28 18:00] VITALS: BP 109/70; PULSE 79; RESP 16; TEMP 97.4; O2SAT 95
[2025-05-28 20:00] VITALS: RESP 16; O2SAT 95
[2025-05-28 22:00] VITALS: BP 108/68; PULSE 82; RESP 16; TEMP 99.3; O2SAT 97
[2025-05-29 05:00] VITALS: BP 105/73; PULSE 83; RESP 16; TEMP 97.3; O2SAT 93
[2025-05-29 05:51] LABS: MEAN PLATELET VOLUME 7.9 FL (7.4-10.4); RED CELL DISTRIBUTION WIDTH 13.8 % (11.5-14.5)
[2025-05-29 06:19] LABS: CREATININE 0.68 MG/DL (0.40-0.90); TOTAL CARBON DIOXIDE 26.1 MMOL/L (24-32); eCRCL 91 ML/MIN; eGFR > 90 ML/MIN
[2025-05-29 08:05] VITALS: RESP 16
[2025-05-29 10:02] LABS: BANDS% (MANUAL) 20.0 % (0-10); EOSINOPHILS % (MANUAL) 6.0 % (0-6); LYMPHOCYTES % (MANUAL) 45.0 % (21-51); MONOCYTES % (MANUAL) 24.0 % (2-12); NEUTROPHILS % (MANUAL) 5.0 % (42-75); PLATELET ESTIMATE NORMAL
--- NOTE | 2025-05-29 10:37 | DISCHARGE SUMMARY-Residence ---
Discharge Summary Providers to CC Resident Creating Document: MAYO CHONG RES ~ Discharge Summary Admission Diagnosis: Cellulitis vs Erysipelas Hospital Course DATE OF ADMISSION: May 25, 2025 DATE OF DISCHARGE: May 29, 2025 Discharge Diagnosis\Comment: Right lower extremity cellulitis Acute kidney injury, likely prerenal secondary to dehydration, resolved Upper respiratory symptoms, resolved without complications Alcohol use disorder Tobacco use disorder Breast cancer, left breast, Recently diagnosed, pending lumpectomy Operations\Procedures: None Consultants: None Complications: None Condition on DC: Stable New Medications: Lactobacillus Rhamnosus (Culturelle) 10 Billion Cell Capsule 1 CAP PO DAILY for 30 Days, #30 CAP 0 Refills Linezolid (Linezolid) 600 Mg Tablet 1 TAB PO Q12H for 10 Days, #20 TAB 0 Refills Folic Acid* (Folic Acid*) Y Tab 1 MG PO DAILY for 30 Days, #30 TAB Multivitamin with Folic Acid (Thera Tablet) 400 Mcg Tablet 1 EACH PO Q24H for 30 Days, #30 TAB [thiamine tablet] () 100 MG TABLET 100 MG PO DAILY for 30 Days, #30 Continued Medications: Metoprolol Tartrate (Lopressor tablet) 25 Mg Tablet 1 TAB PO Q12H, TAB Hold for SBP below 100mm Hg Hold for Heart Rate below 60. Discontinued Medications: Ibuprofen (Ibuprofen) 800 Mg Tablet 1 TAB PO TID PRN for pain Discharge Summary: Hospital course The patient is a 54-year-old female admitted with right lower extremity pain, erythema, and swelling. Initially suspected to be erysipelas versus cellulitis. Blood cultures remained negative. Patient was empirically started on IV cefazolin for streptococcal coverage. After history of prior MRSA was noted, cefazolin was discontinued and IV vancomycin was initiated. The patient responded well, with significant improvement in pain, tenderness, and erythema. In addition, she had acute kidney injury, prerenal in nature, likely secondary to dehydration. Improved with IV hydration. She was presented with sore throat and nasal congestions. COVID test negative. Symptoms improved without complications. Furthermore, she had history of alcohol use disorder, longstanding history of heavy alcohol use. Managed with thiamine, folate, multivitamin supplementation, and Librium protocol for withdrawal prophylaxis. No withdrawal complications occurred during this admission. Social service consulted for support and outpatient resources. Discharge course: Patient is afebrile, hemodynamically stable. Lower extremity cellulitis significantly improved. ALICE resolved. No alcohol withdrawal symptoms. Discharge medications: See above Discharge instructions: Patient was instructed to follow up with the primary care doctor in one week to review recovery, monitor renal function, and recheck leg cellulitis. Strongly encouraged to pursue alcohol cessation support in outpatient resources provided by social work Take linezolid as prescribed until completed Monitor leg daily for increased redness, swelling, pain, or drainage Elevate leg when sitting to reduce swelling Follow up with your oncologist for recently diagnosed left breast cancer Discharge Physical exam: General: Awake and Alert, no acute distress. HEENT: Conjunctiva pink, Sclera clear, Mucus Membranes moist. Neck: Supple without masses and tenderness. Resp: Unlabored. Lungs clear to auscultation bilaterally. Heart: Regular Rate and rhythm, normal S1 and S2 without murmur, rub or gallop. Abdomen: Soft and non tender no organomegaly Extremities: Right lower extremity swelling, tenderness, and erythema in the mid cough region. Pulses palpable Skin: Warm and Dry *Problems/Diagnosis: (1) Cellulitis Status: Acute (2) ALICE (acute kidney injury) Status: Acute Total Time Spent on D/C: Up to 30 Minutes Date of Service: May 29, 2025 Billing Provider: JOSE NICK MD Common Visit Codes: [id number]-[id number] DISCH DAY >30min Problem Qualifiers (1) Cellulitis: Site of cellulitis: extremity Site of cellulitis of extremity: lower extremity Laterality: right Qualified Codes: L03.115 - Cellulitis of right lower limb MAYO CHONG, RES May 29, 2025 10:32 JOSE NICK MD May 30, 2025 08:53
[2025-05-30] MEDS ORDERED: VANCOMYCIN LEVEL IV ONE (00:30)
== END 2025-05-29 09:53 | disposition home or self-care (01) | DRG 383 ==
LOC: ER 09:40 → ED HOLD 17:18 → SUR 3N 21:25
PROVIDERS: ADMIT Internal Medicine; ATTEND Internal Medicine
DX: L03.115 Cellulitis of right lower limb (principal); C50.912 Malignant neoplasm of unspecified site of left female breast; N17.9 Acute kidney failure, unspecified; E86.0 Dehydration; F10.10 Alcohol abuse, uncomplicated; F17.210 Nicotine dependence, cigarettes, uncomplicated; I10 Essential (primary) hypertension; G89.29 Other chronic pain; Y90.9 Presence of alcohol in blood, level not specified; Z20.822 Contact with and (suspected) exposure to COVID-19; Z86.14 Personal history of Methicillin resistant Staphylococcus aureus infection; Z88.5 Allergy status to narcotic agent; Z79.899 Other long term (current) drug therapy; Z71.6 Tobacco abuse counseling
CPT/HCPCS: 36415; 71046; 80048; 80202; 80305; 81001; 83605; 83735; 84145; 84484; 85007; 85025; 85379; 85651; 86140; 87040; 87081; 87811; 93005; 93971; 96365; 96375; 97116; 97161; 97530; 99285; A6258; A6590; G0378; J0690; J1650; J1885; J2270; J3373; J3374; J3411; J7030

== ENCOUNTER 2025-06-01 04:22 | Emergency (ER) | payer MEDICAID ==
[~2025-06-01] VITALS: Ht 167.6 cm; Wt 68.2 kg
[~2025-06-01 04:22] MED LIST changes: -BETA15CR4 TOP; -CLIN-232 PO; +FOLI1TAB27 PO; -HYDR-4383 PO; -IBUP-1986 PO; +LACT1CAP26 PO; +LINE600T14 PO; -LISI20TA28 PO; +LOP12.5T PO; -LORA-268 PO; +MULT-25 PO; -OXYB5TAB21 PO; -PROM25TA14 PO; -RANI-388 PO; +thiamine tablet PO
--- NOTE | 2025-06-01 04:50 | Physician Documentation ---
History of Present Illness ~ Chief Complaint: Foot pain Stated Complaint: LEG PAIN A BLS Time Seen by MD: 04:25 Primary Medical Doctor: [facility] Mode of Arrival: EMS HPI Patient was recently admitted to the hospital where she had a right lower extremity cellulitis. DVT ultrasound was negative. After she was discharged it took her a few days to fill her antibiotic. She is taking linezolid. She is here with a increasing swelling. No fevers or chills. Tetanus witin 5 years: Yes Medication Reconciliation Allergies: Coded Allergies: codeine (Verified Allergy, Unknown, 06/01/25) Scheduled Folic Acid* (Folic Acid*), 1 MG PO DAILY Lactobacillus Rhamnosus (Culturelle), 1 CAP PO DAILY Linezolid (Linezolid), 1 TAB PO Q12H Metoprolol Tartrate (Lopressor tablet), 1 TAB PO Q12H, (Reported) Multivitamin with Folic Acid (Thera Tablet), 1 EACH PO Q24H [thiamine tablet], 100 MG PO DAILY Discontinued Medications Betamethasone Dipropionate (Betamethasone Dipropionate), 1 APPLIC TOP Q12H Discontinued Reason: patient no longer taking Clindamycin HCl (Clindamycin HCl), 300 MG PO Q6H Discontinued Reason: patient no longer taking Hydrocodone/Acetaminophen ([place] 5-325 Tablet), 1 TAB PO Q6H PRN for moderate pain Discontinued Reason: patient no longer taking Ibuprofen (Ibuprofen), 1 TAB PO TID PRN for pain, (Reported) Lisinopril (Lisinopril), 1 TAB PO DAILY, (Reported) Discontinued Reason: patient no longer taking Lorazepam (Ativan), 1 TAB PO BID PRN for for anxiety/agitation, (Reported) Discontinued Reason: patient no longer taking Oxybutynin Chloride (Oxybutynin Chloride), 2 TABLET PO BID, (Reported) Discontinued Reason: patient no longer taking Promethazine HCl (Promethazine HCl), 1 TAB PO BID PRN for nausea/vomiting, (Reported) Discontinued Reason: patient no longer taking Ranitidine Hcl (Heartburn Relief 150), 150 MG PO DAILY, (Reported) Discontinued Reason: patient no longer taking Past Medical History Past Medical History: Hypertension, *GI/HEPATOBILIARY*, Hepatitis B, Hepatitis C, Chronic Pain, Extremity Fracture, Cellulitis, MRSA Abscess Past Surgical History: abdominal surgery, orthopedic surgeries Alcohol Use: Alcoholic Drug Use: marijuana, methamphetamine Lives In: Home Physical Exam Vital Signs: Temperature: 97.6, Source: Oral, Heart Rate: 86, Respiratory Rate: 16, BP: 144/91, Pulse Oximetry: 94, Weight: 68.180 Oxygen Flow Rate: 0 Physical Exam General: Awake and Alert, no acute distress. HEENT: Conjunctiva pink, Sclera clear, Mucus Membranes moist. Neck: Supple without masses and tenderness. Resp: Unlabored. Lungs clear to auscultation bilaterally. Heart: Regular Rate and rhythm, normal S1 and S2 without murmur, rub or gallop. Abdomen: Soft and non tender no organomegaly Extremities: She has a swelling of the right lower leg dorsum of her foot in the distal 3rd of the right lower leg there is a little bit of redness to the skin that has not warm Skin: Warm and Dry. Neuro: GCS 15; no focal deficits Progress Results/Orders Results/Orders Orders - DESTINY RODRIGUEZ MD Culture Blood (06/01/25 04:25) Completed Orders - DESTINY RODRIGUEZ MD Cbc/Diff (06/01/25 04:25) CMP (06/01/25 04:25) Lacticsepsis (06/01/25 04:25) Normal Saline 1000ml (0.9% Sodium Chlori (06/01/25 04:25) Medications Received in ER Medications (Trade) Dose Ordered Sig/Tanner Route PRN Reason Start Time Stop Time Status Last Admin Dose Admin Sodium Chloride 1,000 ml @ 1,000 mls/hr ONCE ONCE IV 06/01/25 04:25 06/01/25 05:24 DC 06/01/25 04:53 1,000 MLS/HR Vital Signs 06/01/25 06/01/25 06/01/25 04:24 04:31 05:22 Temp 97.6 97.6 Pulse 86 81 Resp 16 16 B/P (MAP) 144/91 133/85 (101) Pulse Ox 94 95 O2 Flow Rate 0 0 Laboratory Tests Test 06/01/25 05:04 White Blood Count 7.1 Red Blood Count 4.03 L Hemoglobin 12.9 Hematocrit 37.9 Mean Corpuscular Volume 94.1 Mean Corpuscular Hemoglobin 32.0 H Mean Corpuscular Hemoglobin Concent 34.1 Red Cell Distribution Width 13.5 Platelet Count 485 H Mean Platelet Volume 7.7 Neutrophils (%) (Auto) 59.7 Lymphocytes (%) (Auto) 26.6 Monocytes (%) (Auto) 10.8 Eosinophils (%) (Auto) 2.2 Basophils (%) (Auto) 0.7 Neutrophils # (Auto) 4.2 Lymphocytes # (Auto) 1.9 Monocytes # (Auto) 0.8 Eosinophils # (Auto) 0.2 Basophils # (Auto) 0.0 CBC Comment Sodium Level 137 Potassium Level 3.8 Chloride Level 102 Carbon Dioxide Level 27.4 Anion Gap 8 Blood Urea Nitrogen 8 Creatinine 0.69 Estimated GFR/1.73 m2 89 BUN/Creatinine Ratio 11.6 Glucose Level 92 Lactic Acid Level 1.1 Calcium Level 9.6 Total Bilirubin 0.3 Aspartate Amino Transf (AST/SGOT) 28 Alanine Aminotransferase (ALT/SGPT) 22 Alkaline Phosphatase 116 Total Protein 9.5 H Albumin 3.2 L Globulin 6.3 H Albumin/Globulin Ratio 0.5 L Chemistry Comments Medical Decision Making Findings Patient is here with persistent cellulitis of the right lower extremities he is currently taking linezolid. That has no signs of sepsis. Patient's labs are all reassuring. Recommended she continue the linezolid. Departure Disposition: HOME / SELF CARE / HOMELESS Impression: Primary Impression: Cellulitis Qualified Codes: L03.90 - Cellulitis, unspecified Condition: Stable Discharge Instructions: Cellulitis Additional Instructions: Keep your leg elevated for the swelling continue the linezolid. Referrals: NO PRIMARY CARE PROVIDER (PCP) Education Educated: Patient Educated regarding: diagnosis Signature Scribe Signature: no scribe Attestation: no scribDESTINY Mckeon MD Jun 01, 2025 04:50
[2025-06-01] MEDS: normal saline 1000ml 1,000 ML IV ONE (04:53)
[2025-06-01 05:43] LABS: MEAN PLATELET VOLUME 7.7 FL (7.4-10.4); RED CELL DISTRIBUTION WIDTH 13.5 % (11.5-14.5)
[2025-06-01 05:53] LABS: CREATININE 0.69 MG/DL (0.40-0.90); TOTAL CARBON DIOXIDE 27.4 MMOL/L (24-32); eCRCL 89 ML/MIN; eGFR 89 ML/MIN
[2025-06-01 06:04] VITALS: BP 133/91; PULSE 82; RESP 16; TEMP 97.6; O2SAT 97
== END 2025-06-01 06:12 | disposition home or self-care (01) ==
LOC: ER 04:22
DX: L03.115 Cellulitis of right lower limb (principal); I10 Essential (primary) hypertension; G89.29 Other chronic pain; F12.90 Cannabis use, unspecified, uncomplicated; F15.90 Other stimulant use, unspecified, uncomplicated; F10.90 Alcohol use, unspecified, uncomplicated; Z88.5 Allergy status to narcotic agent; Z86.19 Personal history of other infectious and parasitic diseases; Z79.899 Other long term (current) drug therapy; Z86.14 Personal history of Methicillin resistant Staphylococcus aureus infection; Y90.9 Presence of alcohol in blood, level not specified; Z98.890 Other specified postprocedural states
CPT/HCPCS: 36415; 80053; 83605; 85025; 87040; 96360; 99283; J7030